=== PATIENT | female | born 1980 | race Caucasian/White ===

== ENCOUNTER 2017-05-02 07:49 | Outpatient (CLI) | payer OTHER ==
--- NOTE | 2017-05-02 12:20 | RAD ---
CHEST 2 VIEWS: Date: 05/02/17 COMPARISON: 10/29/16. HISTORY: Chronic sinusitis. FINDINGS: Normal cardiac silhouette. Pulmonary vessels and hilum are normal. No mass. No consolidation. No pneu mothorax or osseous abnormalities. IMPRESSION: No acute cardiopulmonary process. POS: [facility]
== END 2017-05-02 07:50 | disposition home or self-care (01) ==
LOC: RAD 07:49
PROVIDERS: ATTEND Otolaryngology Plastic Surgery within the Head & Neck
DX: J32.9 Chronic sinusitis, unspecified (principal)
CPT/HCPCS: 71020

== ENCOUNTER 2017-05-21 11:33 | Day surgery (SDC) | payer OTHER ==
[2017-05-20 10:53] VITALS: BMI 34.1
[2017-05-21] MEDS ORDERED: Clindamycin/D5W 900 mg/50 ml Premix Bag ONE (12:07)
[2017-05-21] MEDS ORDERED: Lidocaine 1% w/Epinephrine 1:200K 30 ML VIAL ONE (12:33)
[2017-05-21] MEDS ORDERED: Scopolamine 1.5 mg/72 hour Patch ONE (13:12)
[2017-05-21] MEDS ORDERED: Fentanyl 100 MCG/2 ML VIAL ONE (13:52)
[2017-05-21] MEDS ORDERED: Propofol 1,000 MG/100 ML VIAL IV ONE (14:21)
[2017-05-21] MEDS ORDERED: Diprivan 20 ML ONE (14:21)
[2017-05-21] MEDS ORDERED: HYDROcodone/Acetaminophen 5/325 mg Tablet ONE (15:53)
[2017-05-21] MEDS ORDERED: Ondansetron HCl/PF 4 MG/2 ML Vial ONE (16:10)
[2017-05-21] MEDS ORDERED: Ketorolac Tromethamine 30 MG/ML VIAL ONE (16:10)
[2017-05-21] MEDS ORDERED: Dexamethasone 20 MG/5 ML VIAL ONE (16:10)
[2017-05-21] MEDS ORDERED: Propofol 200 MG/20 ML VIAL ONE (16:10)
[2017-05-21] MEDS ORDERED: Lidocaine 1% PF 5 ML VIAL ONE (16:10)
--- NOTE | 2017-05-22 11:44 | OP ---
DATE OF PROCEDURE: 05/21/2017 PREOPERATIVE DIAGNOSIS: Right cubital tunnel syndrome. POSTOPERATIVE DIAGNOSIS: Right cubital tunnel syndrome. PROCEDURE: Right cubital tunnel release, neuroplasty of ulnar nerve at the elbow - CPT code 38539. PRIMARY SURGEON: Alli Germain M.D. ANESTHESIA: General. TOURNIQUET TIME: 27 minutes at 250 mmHg. ESTIMATED BLOOD LOSS: Less than 10 mL. DRAINS: None. SPECIMENS: None. COMPLICATIONS: None. OPERATIVE INDICATIONS: The patient is a pleasant 37-year-old female who is right hand dominant and w orks in Nuclear Medicine at [employer] who presents for 6 month worsening history of right ulnar base d pain and paresthesias. She had numbness extending out to her ulnar 2 digits and significant pain e xtending from the medial elbow distally. Based on her clinical exam, a referral was made for EMG and nerve conduction studies which confirmed a moderate to severe cubital tunnel syndrome of her ulnar n erve at the elbow. Risks and benefits of proceeding with open release were discussed in detail and w abdulkadir consent was obtained. DESCRIPTION OF PROCEDURE: The patient's right upper extremity was marked in the preoperative holding area. She was transferred to the operative suite in a supine position where general anesthesia was induced. Perioperative antibiotics were administered and a surgical timeout was performed correctly identifying patient, procedure and laterality. An upper arm nonsterile tourniquet was placed. Her r ight upper extremity was prepped and draped in the usual sterile fashion. After use of Esmarch dress ing, the tourniquet was insufflated. A 5 cm curvilinear incision was made just posterior to the medial epicondyle, and centered over her u lnar nerve. Sharp dissection was carried through subcutaneous tissue, maintaining careful hemostasis throughout. Careful blunt dissection in association with Metzenbaum scissors was used to dissect do wn to ulnar nerve. The ulnar nerve was identified just posterior to the medial epicondyle. We first worked distally, freeing up the ulnar nerve all the way through the heads of the flexor carpi ulnari s. Throughout this procedure, we carefully protected the medial antebrachial cutaneous. Next, we started working proximally and carefully released Marinelli's ligament over the ulnar nerve. We then continued proximally and released the arcade of Severn. At this point, under direct visua lization, and manual palpation, the ulnar nerve was completely freed in both the proximal and distal directions. We then put the elbow through a range of motion and there was no nerve irritation or sub luxation with full flexion. The wound was then copiously irrigated with sterile saline. Some deep f at tissue was then closed with interrupted 2-0 Vicryl suture. The skin was then closed with 3-0 nylo n. Xeroform, dry dressings, and a short posterior splint were applied to her right elbow. A sling w as also applied. General anesthesia was removed, and she was transferred to recovery in good conditi on. Tolerated procedure well without complication. POSTOPERATIVE PLAN: The patient will be nonweightbearing right upper extremity, is to keep the splin t clean and dry. She will follow up in 1 week for splint removal. She is discharged on Tylenol 3 an d Zofran.
== END 2017-05-21 19:29 | disposition home or self-care (01) ==
LOC: SDC 11:33
PROVIDERS: ATTEND Orthopaedic Surgery
PROC: 01N40ZZ Release Ulnar Nerve, Open Approach (ICD-10-PCS; principal; 2017-05-21)
DX: G56.21 Lesion of ulnar nerve, right upper limb (principal); I10 Essential (primary) hypertension; Z88.0 Allergy status to penicillin; Z88.5 Allergy status to narcotic agent; Z98.890 Other specified postprocedural states
CPT/HCPCS: J1100; J1885; J2001; J2405; J2704; J3010; J3490

== ENCOUNTER 2017-11-18 14:59 | Outpatient (CLI) | payer OTHER ==
--- NOTE | 2017-11-19 10:30 | MRI ---
MRI RIGHT ELBOW WITHOUT CONTRAST: INDICATIONS: Concern for right medial epicondylitis; history of a cubital tunnel release in April 2017 but with continued elbow pain. COMPARISON: None. TECHNIQUE: Routine noncontrast MR images were obtained of the right elbow. FINDINGS: A surface marker was placed within the reported region of pain, at the medial aspect of the right elb ow, at the level of the medial humeral epicondyle. There is no appreciable signal change within the medial humeral epicondyle, nor within the common flexor origin to suggest the presence of epicondylit is. There is evidence of surgical release within the region of the cubital tunnel. The ulnar nerve has a normal signal intensity and appearance. The biceps, brachialis, and triceps insertions appear within normal limits. The common extensor origin is normal appearing. The ulnar collateral ligament , radial collateral ligament, and lateral ulnar collateral ligament appear intact. No intraarticular body is evident. Bone marrow signal intensity appears within normal limits. IMPRESSION: 1. No acute abnormality. 2. Post procedural change of a cubital tunnel release. POS: [facility]
== END 2017-11-18 15:00 | disposition home or self-care (01) ==
LOC: MRI 14:59
PROVIDERS: ATTEND Orthopaedic Surgery
DX: M77.01 Medial epicondylitis, right elbow (principal); Z98.890 Other specified postprocedural states

== ENCOUNTER 2017-12-24 11:02 | Outpatient (CLI) | payer OTHER ==
--- NOTE | 2017-12-24 14:12 | MRI ---
MRI LEFT FOREFOOT WITHOUT IV CONTRAST: HISTORY: A 37-year-old female with a history of intertarsal tendinitis with medial left foot pain for approxim ately eight months. FINDINGS: There is fluid within the intermetatarsal bursa, particularly between the second and third and third and fourth toes, which can be a finding seen in intermetatarsal bursitis. There is some increased fl uid in the fifth metatarsophalangeal joint. Mild degenerative changes at the first metatarsophalange al joint. First metatarsophalangeal joint sesamoid bones are within normal limits. The visualized f lexor, extensor, and peroneus tendons are intact. No evidence for abnormal marrow signal. Trace flu id within the distal tendon sheath, at the insertion of the anterior tibialis tendon, without evidenc e for an associated tear. IMPRESSION: 1. Minimal fluid within the distal anterior tibialis tendon, extending from the insertion, evidence for some tenosynovitis. 2. Minimal fluid within the intermetatarsal bursa, particularly between the second and third and the third and fourth toes, a finding that can be associated with intermetatarsal bursitis. 3. Increased fluid in the fifth metatarsophalangeal joint, without other significant acute process. 4. No abnormal marrow signal. POS: [facility]
== END 2017-12-24 11:03 | disposition home or self-care (01) ==
LOC: MRI 11:02
PROVIDERS: ATTEND Podiatrist
DX: M77.52 Other enthesopathy of left foot and ankle (principal); M65.872 Other synovitis and tenosynovitis, left ankle and foot

== ENCOUNTER 2018-02-27 13:49 | Outpatient (CLI) | payer OTHER | END 2018-02-27 13:50 | disposition home or self-care (01) | LOC: BICMAMMO 13:49 | PROVIDERS: ATTEND Orthopaedic Surgery | DX: Z12.31 Encounter for screening mammogram for malignant neoplasm of breast (principal) | CPT/HCPCS: 77063; 77067 ==

== ENCOUNTER 2018-05-08 11:17 | Outpatient (CLI) | payer OTHER ==
--- NOTE | 2018-05-08 12:48 | RAD ---
PA AND LATERAL CHEST: History: Cough. FINDINGS: Comparison is made with exam of 17. Heart size is normal. The lungs are expanded without focal areas of consolidation, pneumothorax, or p leural effusions. There are mild degenerative changes in the spine. IMPRESSION: No radiographic evidence of acute cardiopulmonary process. POS: [facility]
== END 2018-05-08 11:18 | disposition home or self-care (01) ==
LOC: RAD 11:17
PROVIDERS: ATTEND Internal Medicine
DX: R05 Cough (principal)
CPT/HCPCS: 71046

== ENCOUNTER 2018-08-26 07:02 | Outpatient (CLI) | payer OTHER ==
--- NOTE | 2018-08-26 11:17 | MRI ---
[facility] Lower Ext Jt Lt WO Con History: [Pain. Left posterior tibial tendinitis. And 76.8-2] Comparison: MRI left foot from 2018 Findings: Ligaments: The AITFL , PITFL, superficial and deep deltoid ligaments are intact. Chronic te ar and scar of the ATFL. Chronic scar at the CFL. Tendons: The Achilles tendon is intact. Normal amount of retrocalcaneal bursa effusion. Normal locati on and appearance of the peritoneal tendons. The retromalleolar groove is flat. There is mild interstitial type tear in the posterior tibial tendon with low-grade posterior tibial t enosynovitis the level of the ankle to its insertion on the navicular. There is distal descending haddad bs appear normal. There is also some synovitis of the along the medial margin of the talar head and n felipe. The tibial spring and superomedial band of the spring ligament is mildly thickened. The inferior longitudinal and medial plantar oblique portions of the spring ligament are intact. The Lisfranc ligament proper is intact. Muscles: The muscle signal and bulk is normal. Soft tissues: The plantar fascia is intact. Bones: No fracture. No malalignment. Small dorsal talar neck spur. Small ankle joint effusion. No ost eochondral lesion of the talar dome nor of the tibial plafond. Impression: 1. Mild posterior tibial tenosynovitis and interstitial type tearing from the level of the ankle join t to the navicular insertion. No full-thickness rupture. 2. Reactive thickening and scar along the superomedial band of the spring ligament likely sequelae of chronic increased stress from posterior tibial tendon partial insufficiency. 3. No osseous stress reaction. 4. Small dorsal talar neck spur without significant joint effusion.
== END 2018-08-26 07:03 | disposition home or self-care (01) ==
LOC: MRI 07:02
PROVIDERS: ATTEND Family Medicine Sports Medicine
DX: M76.822 Posterior tibial tendinitis, left leg (principal)

== ENCOUNTER 2019-03-05 11:58 | Outpatient (CLI) | payer OTHER ==
--- NOTE | 2019-03-05 13:29 | MMO ---
Bilateral MAMMO Bilat Screen [facility]DI+JULEE. CLINICAL HISTORY: Patient is 39 years old and is seen for screening. The patient has no family history of breast cancer. The patient has no personal history of cancer. VIEWS: The views performed were: bilateral craniocaudal with tomosynthesis and bilateral mediolateral oblique with tomosynthesis. FILMS COMPARED: The present examination has been compared to a prior imaging study performed at [facility] on 02/27/2018. This study has been interpreted with the assistance of computer-aided detection. MAMMOGRAM FINDINGS: There are scattered fibroglandular densities. There are no suspicious masses, suspicious calcifications, or new areas of architectural distortion. IMPRESSION: THERE IS NO MAMMOGRAPHIC EVIDENCE OF MALIGNANCY. A ROUTINE FOLLOW-UP MAMMOGRAM IN 1 YEAR IS RECOMMENDED. THE RESULTS OF THIS EXAM WERE SENT TO THE PATIENT. ACR BI-RADS Category 1 - Negative MAMMOGRAPHY NOTE: 1. A negative mammogram report should not delay a biopsy if a dominant of clinically suspicious mass is present. 2. Approximately 10% to 15% of breast cancers are not detected by mammography. 3. Adenosis and dense breasts may obscure an underlying neoplasm. Reported by: KANDIS ALVAREZ MD Electonically Signed: [id number]
== END 2019-03-05 11:59 | disposition home or self-care (01) ==
LOC: BICMAMMO 11:58
PROVIDERS: ATTEND Obstetrics & Gynecology
DX: Z12.31 Encounter for screening mammogram for malignant neoplasm of breast (principal)
CPT/HCPCS: 77063; 77067

== ENCOUNTER 2019-05-12 07:15 | Outpatient (CLI) | payer OTHER ==
--- NOTE | 2019-05-12 08:33 | CT ---
CT paranasal sinuses: DATE: 05/12/2019 HISTORY: 39-year-old female with chronic, recurrent sinusitis. COMPARISON: Reference CT images from office scanner at [facility] 04/18/2015 FINDINGS: There has been interval resection of the uncinate processes with bilateral medial maxillary antrostom ies. Most of the left ethmoid septa have been resected. Many of the right ethmoid septa remain. There has been partial resection of the anterior portions of the bilateral middle turbinates. Whereas on the previous CT, the paranasal sinuses were completely clear, now there is extensive mucos al thickening, resulting in partial opacification of varying degrees: Right frontal sinus: Moderate mucosal thickening at right frontal recess with severe partial opacific ation contiguous with severe partial opacification or total opacification of right anterior ethmoid air cells. Upper portion of right frontal sinus is clear. Left frontal sinus: Upper portion is clear. Partial opacification of left frontal recess. Right ethmoid air cells: Severe partial opacification of anterior and posterior ethmoid air cells. Left ethmoid: Severe partial opacification anteriorly. Mild mucosal thickening posteriorly. Right sphenoid air cell: Totally opacified contiguously through widened sphenoethmoidal recess contig uous with opacified right posterior ethmoid air cells. Left sphenoid air cell: Dominant. Mild mucosal thickening anteriorly. Otherwise, the rest of the air cell is clear. However, left sphenoethmoidal recess is opacified and apparently occluded. Right maxillary sinus: Moderate mucosal thickening. The medial antrostomy defect is patent. Approxima tely 15-20% opacified. Left maxillary sinus: Left medial antrostomy defect is narrowed by local mucosal thickening. Circumfe rential mucosal thickening causing approximately 10-15% opacification. Nasal cavity: Mucosal thickening causing moderate partial opacification of portions of the left middl e meatus. IMPRESSION: 1. Status post bilateral uncinectomies, medial maxillary antrostomies, bilateral ethmoidectomies, and turbinoplasties. 2. New finding of extensive partial opacification of paranasal sinuses diffusely, in a nonocclusive p attern.
== END 2019-05-12 07:16 | disposition home or self-care (01) ==
LOC: CT 07:15
PROVIDERS: ATTEND Otolaryngology Plastic Surgery within the Head & Neck
DX: J32.9 Chronic sinusitis, unspecified (principal); J34.89 Other specified disorders of nose and nasal sinuses; Z98.890 Other specified postprocedural states

== ENCOUNTER 2019-06-23 06:55 | Day surgery (SDC) | payer OTHER ==
[2019-06-22 09:59] VITALS: BMI 34.3
[2019-06-23] MEDS ORDERED: AFRIN NASAL MIST 15 ML BOT ONE ×2 (07:57→08:27)
[2019-06-23 08:21] LABS: BHCG - Serum Negative (NEGATIVE); Pregs Control Background? CLEAR/WHITE (CLR/WHITE); Pregs Control Bar Appear? YES (CONTROL BAR)
[2019-06-23] MEDS ORDERED: Lidocaine 1% w/Epinephrine 1:100K 20 ML VIAL ONE (08:27)
[2019-06-23] MEDS ORDERED: Scopolamine 1.5 mg/72 hour Patch ONE (08:29)
[2019-06-23] MEDS ORDERED: Ondansetron PF 4 MG/2 ML Vial ONE ×3 (08:30→12:23)
[2019-06-23] MEDS ORDERED: Fentanyl 250 MCG/5 ML VIAL ONE (08:30)
[2019-06-23] MEDS ORDERED: PROVENTIL INHALER 6.7 G (200 INHALATIONS) INH SCH (08:45)
[2019-06-23] MEDS ORDERED: Scopolamine 1.5 mg/72 hour Patch TOP SCH (08:45)
[2019-06-23] MEDS ORDERED: Albuterol Sulfate HFA (OR ONLY) ONE (08:49)
[2019-06-23] MEDS ORDERED: Lidocaine 1% PF 5 ML VIAL ONE (09:24)
[2019-06-23] MEDS ORDERED: Succinylcholine Chloride 20 MG/ML 10 ml SYRINGE FS ONE (09:24)
[2019-06-23] MEDS ORDERED: PROPOFOL 200 MG/20 ML VIAL ONE (09:24)
[2019-06-23] MEDS ORDERED: Rocuronium Bromide 10 MG/ML (10ML VIAL) ONE (09:24)
[2019-06-23] MEDS ORDERED: Dexamethasone 20 MG/5 ML VIAL ONE (09:24)
[2019-06-23] MEDS ORDERED: Fentanyl 100 MCG/2 ML VIAL ONE ×2 (10:04→10:19)
[2019-06-23] MEDS ORDERED: Promethazine HCl 25 MG/ML VIAL ONE ×2 (10:09→10:30)
[2019-06-23] MEDS ORDERED: diphenhydrAMINE 50 MG/ML VIAL ONE (11:30)
[2019-06-23] MEDS ORDERED: Morphine 4 MG/ML VIAL ONE (12:32)
[2019-06-23] MEDS ORDERED: HYDROcodone/Acetaminophen 5/325 mg Tablet ONE (13:34)
--- NOTE | 2019-06-24 09:35 | OP ---
DATE OF PROCEDURE: 06/23/2019 PREOPERATIVE DIAGNOSES: 1. Chronic rhinosinusitis. 2. Bilateral nasal polyposis. 3. Allergic fungal sinusitis. 4. Nasal obstruction. 5. Bilateral inferior turbinate submucosal resection. POSTOPERATIVE DIAGNOSES: 1. Chronic rhinosinusitis. 2. Bilateral nasal polyposis. 3. Allergic fungal sinusitis. 4. Nasal obstruction. 5. Bilateral inferior turbinate submucosal resection. PROCEDURES PERFORMED: 1. Bilateral endoscopic sinus surgery, total ethmoidectomies with removal of tissue. 2. Bilateral endoscopic sinus surgery, maxillary antrostomies with removal of tissue. 3. Bilateral endoscopic sinus surgery, sphenoidotomies with removal of tissue. 4. Bilateral endoscopic sinus surgery, frontal sinusotomies with removal of tissue. 5. Bilateral inferior turbinate submucosal resection. 6. [employer] cranial base image-guided navigational surgery. ESTIMATED BLOOD LOSS: 100 mL. COMPLICATIONS: None. ANESTHESIA: GETA. DESCRIPTION OF PROCEDURE: The patient was taken to the operating room and placed supine on the table. General endotracheal anesthesia was obtained by the Anesthesia Staff. Tube was secured in the left lower lip. The patient was then placed in the beach-chair position. Afrin pledgets were placed in the nasal cavity. The patient was prepped and draped for standard nasal procedures and the [employer] image-guided system was set up and was calibrated and was noted to be within 1 mm of accuracy. Following this, the Afrin pledgets were removed. 1% lidocaine with 1:100,000 epinephrine was injected into the inferior turbinates, middle turbinates, and lateral nasal wall. Following this, the 0-degree endoscope was advanced into the nasal cavity. The middle turbinates were gently medialized. There was polypoid tissue and copious amounts of fungal debris and fungal mucin in the maxillary sinuses and ethmoidal regions. These were removed using the microdebrider and straight suction. Remnant scar bands and ethmoidal cells were opened, working from posteriorly to anteriorly using the navigation-assisted microdebrider. The skull base and cribriform plate were protected throughout this part of the procedure. The maxillary sinus ostia were widened using the 40-degree microdebrider blade by the removal of nasal polyps and scar bands that had irritated this area. Following this, the 45-degree endoscope was then used to visualize the frontal sinus recess and frontal sinus ostia, which was then widened using the 40-degree microdebrider blade and up-biting Blakesley forceps. Remnant bone that had become infected with osteomyelitis was removed from this area along with fungal debris and polypoid tissue bilaterally. Following this, the location of the sphenoid sinus ostia was identified using the [employer] image-guided system and was punctured with the Chen tip suction bilaterally. Following this, the sphenoid sinus ostia was then widened medially and inferiorly using the microdebrider. Nasal polyps and scar tissue were removed from this area, widen the sphenoidotomies bilaterally. Following this, the inferior turbinates were then punctured on the anterior and inferior aspect and submucosal microdebridement was performed of the anterior and inferior portions of the inferior turbinates bilaterally. Following this, the patient tolerated the procedure well. Nasal cavity was irrigated. Steroid PROPEL stents were then placed within the frontal sinus and sphenoid sinus ostia bilaterally. The patient tolerated the procedure well. Job ID: [id number]
== END 2019-06-23 13:50 | disposition home or self-care (01) ==
LOC: SDC 06:55
PROVIDERS: ATTEND Otolaryngology Plastic Surgery within the Head & Neck
PROC: 09BX8ZZ Excision of Left Sphenoid Sinus, Via Natural or Artificial Opening Endoscopic (ICD-10-PCS; principal; 2019-06-23)
PROC: 09TL7ZZ Resection of Nasal Turbinate, Via Natural or Artificial Opening (ICD-10-PCS; principal; 2019-06-23)
PROC: 09BW8ZZ Excision of Right Sphenoid Sinus, Via Natural or Artificial Opening Endoscopic (ICD-10-PCS; principal; 2019-06-23)
PROC: 09TU8ZZ Resection of Right Ethmoid Sinus, Via Natural or Artificial Opening Endoscopic (ICD-10-PCS; principal; 2019-06-23)
PROC: 8E09XBZ Computer Assisted Procedure of Head and Neck Region (ICD-10-PCS; principal; 2019-06-23)
PROC: 09BQ8ZZ Excision of Right Maxillary Sinus, Via Natural or Artificial Opening Endoscopic (ICD-10-PCS; principal; 2019-06-23)
PROC: 09BS8ZZ Excision of Right Frontal Sinus, Via Natural or Artificial Opening Endoscopic (ICD-10-PCS; principal; 2019-06-23)
PROC: 09BR8ZZ Excision of Left Maxillary Sinus, Via Natural or Artificial Opening Endoscopic (ICD-10-PCS; principal; 2019-06-23)
PROC: 09TV8ZZ Resection of Left Ethmoid Sinus, Via Natural or Artificial Opening Endoscopic (ICD-10-PCS; principal; 2019-06-23)
PROC: 09BT8ZZ Excision of Left Frontal Sinus, Via Natural or Artificial Opening Endoscopic (ICD-10-PCS; principal; 2019-06-23)
DX: J32.8 Other chronic sinusitis (principal); J33.9 Nasal polyp, unspecified; J30.89 Other allergic rhinitis; J34.89 Other specified disorders of nose and nasal sinuses; J34.3 Hypertrophy of nasal turbinates; I10 Essential (primary) hypertension; G89.29 Other chronic pain; M54.9 Dorsalgia, unspecified; F42.9 Obsessive-compulsive disorder, unspecified; Z79.899 Other long term (current) drug therapy; Z88.0 Allergy status to penicillin; Z88.5 Allergy status to narcotic agent; Z88.8 Allergy status to other drugs, medicaments and biological substances
CPT/HCPCS: 36415; 84703; 85014; 87070; 87102; 87205; 87206; J1100; J1200; J2001; J2270; J2405; J2550; J2704; J3010

== ENCOUNTER 2020-05-10 12:52 | Outpatient (CLI) | payer OTHER ==
--- NOTE | 2020-05-10 13:39 | MMO ---
Bilateral MAMMO Bilat Screen [facility]DI[facility]JU[facility]E. CLINICAL HISTORY: Patient is 40 years old and is seen for screening. The patient has no family history of breast cancer. The patient has no personal history of cancer. VIEWS: The views performed were: bilateral craniocaudal with tomosynthesis and bilateral mediolateral oblique with tomosynthesis. FILMS COMPARED: The present examination has been compared to prior imaging studies performed at [facility] on 02/27/2018 and 03/05/2019. This study has been interpreted with the assistance of computer-aided detection. MAMMOGRAM FINDINGS: The breasts are heterogeneously dense, which could obscure a lesion on mammography. There are stable benign appearing calcifications seen in both breasts. There are no suspicious masses, suspicious calcifications, or new areas of architectural distortion. IMPRESSION: THERE IS NO MAMMOGRAPHIC EVIDENCE OF MALIGNANCY. A ROUTINE FOLLOW-UP MAMMOGRAM IN 1 YEAR IS RECOMMENDED. THE RESULTS OF THIS EXAM WERE SENT TO THE PATIENT. ACR BI-RADS Category 2 - Benign finding MAMMOGRAPHY NOTE: 1. A negative mammogram report should not delay a biopsy if a dominant of clinically suspicious mass is present. 2. Approximately 10% to 15% of breast cancers are not detected by mammography. 3. Adenosis and dense breasts may obscure an underlying neoplasm. Reported by: MITRA WATERS MD Electonically Signed: [id number]
== END 2020-05-10 12:53 | disposition home or self-care (01) ==
LOC: BICMAMMO 12:52
PROVIDERS: ATTEND Obstetrics & Gynecology
DX: Z12.31 Encounter for screening mammogram for malignant neoplasm of breast (principal)
CPT/HCPCS: 77063; 77067

== ENCOUNTER 2020-10-06 12:53 | Outpatient (CLI) | payer OTHER | END 2020-10-06 12:54 | disposition home or self-care (01) | LOC: BICMRI 12:53 | PROVIDERS: ATTEND Orthopaedic Surgery | DX: S83.241D Other tear of medial meniscus, current injury, right knee, subsequent encounter (principal); M25.861 Other specified joint disorders, right knee ==

== ENCOUNTER 2021-04-18 07:16 | Outpatient (CLI) | payer OTHER | END 2021-04-18 07:17 | disposition home or self-care (01) | LOC: CT 07:16 | PROVIDERS: ATTEND Otolaryngology Plastic Surgery within the Head & Neck | DX: J32.9 Chronic sinusitis, unspecified (principal); J34.89 Other specified disorders of nose and nasal sinuses; Z98.890 Other specified postprocedural states ==

== ENCOUNTER 2021-05-14 13:00 | Outpatient (CLI) | payer OTHER | END 2021-05-14 13:01 | disposition home or self-care (01) | LOC: BICMAMMO 13:00 | PROVIDERS: ATTEND Obstetrics & Gynecology | DX: Z12.31 Encounter for screening mammogram for malignant neoplasm of breast (principal) | CPT/HCPCS: 77063; 77067 ==

== ENCOUNTER 2023-12-15 12:36 | Outpatient (CLI) | payer BC | END 2023-12-15 12:37 | disposition home or self-care (01) | LOC: CT 12:36 | PROVIDERS: ATTEND Otolaryngology Plastic Surgery within the Head & Neck | DX: J32.8 Other chronic sinusitis (principal); Z98.890 Other specified postprocedural states ==

== ENCOUNTER 2024-02-20 14:26 | Outpatient (CLI) | payer BC | END 2024-02-20 14:27 | disposition home or self-care (01) | LOC: BICMAMMO 14:26 | PROVIDERS: ATTEND Obstetrics & Gynecology | DX: Z12.31 Encounter for screening mammogram for malignant neoplasm of breast (principal) | CPT/HCPCS: 77067 ==

== ENCOUNTER 2024-04-16 12:57 | Outpatient (CLI) | payer BC ==
[2024-04-16 14:08] LABS: #Basophils 0.05 10x3/uL (0.0-0.2); %Basophils 0.7 % (0.0-1.0); %Eosinophils 1.7 % (0.0-10.0); %Lymphocytes 41.8 % (21.0-51.0); %Monocytes 7.5 % (0.0-10.0); Hematocrit 41.8 % (36.0-47.0); Hemoglobin 14.4 g/dL (12.0-16.0); Mean Corpuscular HGB CONC 34.4 g/dL (32.0-36.0); Mean Corpuscular Hemoglobin 31.9 pg (27.0-31.0); Mean Corpuscular Volume 92.7 fL (78.0-98.0); Mean Platelet Volume 10.2 fL (7.4-10.4); Platelet Count 215 10x3/uL (130-400); RBC Distribution Width 11.9 % (11.5-14.5); Red Blood Cell (RBC) Count 4.51 mill/uL (4.20-5.40)
[2024-04-16 14:18] LABS: BHCG - Serum Negative (NEGATIVE); Pregs Control Background? CLEAR/WHITE (CLR/WHITE); Pregs Control Bar Appear? YES (CONTROL BAR)
[2024-04-16 14:22] LABS: Anion Gap 11 mmol/L (10-20); BUN (Urea Nitrogen) 10 mg/dL (7.0-18.7); Calc. Creatinine Clearance 0 mL/min (70-130); Calcium 8.8 mg/dL (7.8-10.44); Carbon Dioxide 23 mmol/L (22-29); Chloride 107 mmol/L (98-107); Estimated GFR 108; Glucose 71 mg/dL (70-105); Potassium 4.2 mmol/L (3.5-5.1); Sodium 137 mmol/L (136-145)
== END 2024-04-16 12:58 | disposition home or self-care (01) ==
LOC: LABBT 12:57
PROVIDERS: ATTEND Orthopaedic Surgery
DX: Z01.812 Encounter for preprocedural laboratory examination (principal); M23.91 Unspecified internal derangement of right knee
CPT/HCPCS: 80048; 84703; 85025

== ENCOUNTER → 2024-04-21 | Day surgery (SDC) | payer BC ==
[2024-04-16 13:12] VITALS: BMI 28.8
[~2024-04-21] MED LIST: Bupivacaine PF 0.5% 30 ML VIAL ONE; CEFAZOLIN 2 GM VIAL ONE; Clindamycin/D5W 600 mg/50 ml Premix Bag ONE; Dexamethasone 20 MG/5 ML VIAL ONE; HYDROcodone/Acetaminophen 5/325 mg Tablet ONE; Ipratropium/Albuterol 3 ML NEB ONE; Lidocaine 1% PF 5 ML VIAL ONE; Lidocaine 2% PF 100 mg/5 ml Syringe ONE; Midazolam HCl 2 mg/2 ml Vial ONE; Ondansetron PF 4 MG/2 ML Vial ONE; PROPOFOL 200 MG/20 ML VIAL ONE; Scopolamine 1 mg/72 hour Patch ONE; fentaNYL 50 mcg/mL 1 mL Vial ONE
== END ==
LOC: SDC 08:00
PROVIDERS: ATTEND Orthopaedic Surgery
PROC: 0SBC4ZZ Excision of Right Knee Joint, Percutaneous Endoscopic Approach (ICD-10-PCS; principal; 2024-04-21)
DX: M23.91 Unspecified internal derangement of right knee (principal); M94.261 Chondromalacia, right knee; I10 Essential (primary) hypertension; I36.0 Nonrheumatic tricuspid (valve) stenosis; J45.909 Unspecified asthma, uncomplicated; F41.0 Panic disorder [episodic paroxysmal anxiety]; Z98.890 Other specified postprocedural states; Z79.899 Other long term (current) drug therapy; Z90.49 Acquired absence of other specified parts of digestive tract; Z88.0 Allergy status to penicillin; Z88.6 Allergy status to analgesic agent; Z88.8 Allergy status to other drugs, medicaments and biological substances
CPT/HCPCS: J0665; J1100; J2003; J2250; J2405; J2704; J3010; J3490; J7620

== ENCOUNTER 2024-12-24 14:26 | Outpatient (CLI) | payer BC | END 2024-12-24 14:27 | disposition home or self-care (01) | LOC: MRI 14:26 | PROVIDERS: ATTEND Orthopaedic Surgery | DX: M76.822 Posterior tibial tendinitis, left leg (principal); M65.962 Unspecified synovitis and tenosynovitis, left lower leg; M76.9 Unspecified enthesopathy, lower limb, excluding foot; R60.0 Localized edema; M24.29 Disorder of ligament, other specified site ==

== ENCOUNTER 2025-03-23 14:38 | Outpatient (CLI) | payer BC | END 2025-03-23 14:39 | disposition home or self-care (01) | LOC: BICMAMMO 14:38 | PROVIDERS: ATTEND Physician Assistant | DX: Z12.31 Encounter for screening mammogram for malignant neoplasm of breast (principal) | CPT/HCPCS: 77063; 77067 ==